=== PATIENT | male | born 1985 | race Caucasian/White ===

== ENCOUNTER 2020-06-27 15:01 | Emergency (ER) | payer MEDICAID ==
[~2020-06-27] VITALS: Ht 172.7 cm; Wt 140.0 kg
--- NOTE | 2020-06-27 15:24 | NUR ---
MD at bedside for exam, present at bedside, and pt awake and alert, calm, cooperative, and stating SI with plan and multiple attempts in past with most recent one approximately 14 months ago. Pt in gown, provided a blanket, security doors closed by high pressure boiler operator and all belongings outside room, labeled in pt belongings bags. Sitter positioned outside room with direct line of sight on pt.
[2020-06-27 16:08] LABS: ALANINE AMINOTRANSFERASE 58 U/L (12-78); ALBUMIN 3.8 g/dL (3.4-5.0); ANION GAP 4 mmol/L (5-15); CALCIUM 9.4 mg/dL (8.5-10.1); CHLORIDE 107 mmol/L (98-107); CREATININE 1.18 mg/dL (0.7-1.3)
[2020-06-27 16:10] LABS: ALKALINE PHOSPHATASE 79 U/L (45-117); BASOPHILS % (AUTO) 1 % (0-1); BILIRUBIN,TOTAL 0.5 mg/dL (0.2-1.0); EOSINOPHILS % (AUTO) 2 % (1-7); LYMPHOCYTES % (AUTO) 36 % (22-44); MEAN CORPUSCULAR HEMOGLOBIN 30.8 pg (27.5-34.5); MEAN CORPUSCULAR HGB CONC 34.5 g/dL (33.2-36.2); MEAN PLATELET VOLUME 6.7 fL (7.4-10.4); MONOCYTES % (AUTO) 12 % (2-9); NEUTROPHILS % (AUTO) 49 % (42-75); PLATELET COUNT 314 x10^3/uL (130-400); RED CELL DISTRIBUTION WIDTH 12.6 % (9.4-14.8); SALICYLATE LEVEL < 1.7 mg/dL (2.8-20.0); TOTAL PROTEIN 8.3 g/dL (6.4-8.2)
[2020-06-27 16:11] LABS: MD NO
[2020-06-27 16:51] LABS: AMPHETAMINE SCREEN, URINE Negative (Negative); BARBITURATE SCREEN, URINE Negative (Negative); BENZODIAZEPINE SCREEN, URINE Negative (Negative); CANNABINOID SCREEN, URINE Negative (Negative); COCAINE SCREEN, URINE Negative (Negative); METHADONE SCREEN, URINE Negative (Negative); OPIATE SCREEN, URINE Negative (Negative)
--- NOTE | 2020-06-27 17:54 | NUR ---
guest services officer states pt is being placed on a legal hold. Hospital bed ordered for pt at this time. Pt ate 100% of dinner tray with all items returned and disposed of.
--- NOTE | 2020-06-27 18:41 | NUR ---
TP TN: PACKET FAXED TO [facility].
--- NOTE | 2020-06-27 18:57 | NUR ---
Report given to GOMEZ, RN and care transferred.
--- NOTE | 2020-06-27 19:20 | NUR ---
Report received from CHARLEE Hidalgo. This RN to assume care. Patient lying in hospital bed with no complaints/needs. Room secured, belongings locked in cabinet. Sitter outside. at bedside. Patient has no meds ordered at this time but takes psych meds regularly. Will discuss home meds with patient and consult ERP.
--- NOTE | 2020-06-27 20:10 | NUR ---
Provided drinks to patient. No other complaints/needs at this time. Room secured, belongings locked in cabinet. Sitter outside.
[2020-06-27] MEDS ORDERED: LISI-170 PO (20:32)
[2020-06-27] MEDS ORDERED: LEVE10007 PO (20:32)
[2020-06-27] MEDS ORDERED: SERT100T32 PO (20:32)
[2020-06-27] MEDS ORDERED: MIRT-34 PO (20:32)
--- NOTE | 2020-06-27 20:32 | NUR ---
Patient states he takes home meds and has the bottles with him. Completed med rec.
[2020-06-27] MEDS ORDERED: MIRTAZAPINE 15 MG TABLET PO SCH (21:00)
--- NOTE | 2020-06-27 21:19 | NUR ---
TP RN: FOLLOW UP CALL TO [facility] FOR UPDATE, PER STAFF THEY WILL REVIEW PACKET AND RETURN CALL.
--- NOTE | 2020-06-27 21:22 | NUR ---
TP RN: FOLLOW UP CALL TO [facility], PER STAFF THEY CAN'T BILL INSURANCE, OFFERED ACCEPTANCE SELF PAY ONLY.
--- NOTE | 2020-06-27 21:29 | NUR ---
TP RN: FOLLOW UP CALL TO [facility], PER [facility] DIAMOND SAW OPERATOR CALL TOMORROW TO SPEAK TO DAY DIAMOND SAW OPERATOR.
[2020-06-27] MEDS: LEVETIRACETAM 500 MG TABLET PO SCH (21:30)
--- NOTE | 2020-06-27 21:34 | NUR ---
TP RN: JIE BARRIENTOS AT [facility] THEY DO NOT ACCEPT PT'S INSURANCE FFS MEDICAID.
--- NOTE | 2020-06-27 21:40 | NUR ---
Patient resting in hospital bed with no complaints. Respirations even and unlabored. Room secured, belongings locked in cabinet. Sitter outside.
[2020-06-27] MEDS ORDERED: MIRTAZAPINE 15 MG TABLET ONE (21:42)
[2020-06-27] MEDS ORDERED: LEVETIRACETAM 500 MG TABLET ONE (21:43)
--- NOTE | 2020-06-27 22:20 | NUR ---
Patient resting in hospital bed with no complaints. Respirations even and unlabored. Room secured, belongings locked in cabinet. Sitter outside.
--- NOTE | 2020-06-27 23:40 | NUR ---
Patient resting in hospital bed with no complaints. Respirations even and unlabored. Room secured, belongings locked in cabinet. Sitter outside. brought additional patient belongings. Locked in cabinet.
--- NOTE | 2020-06-28 00:29 | NUR ---
Patient resting in hospital bed with no complaints. Respirations even and unlabored. Room secured, belongings locked in cabinet. Sitter outside.
--- NOTE | 2020-06-28 01:31 | NUR ---
Report to CHARLEE Whitmore. Patient care transferred.
--- NOTE | 2020-06-28 02:25 | NUR ---
PT RESTING IN BED WITH SITTER AT DOOR. PT IN SI SERCURED ROOM. PT HAS EQUAL AND UNLABORED BREATHING.
--- NOTE | 2020-06-28 03:26 | NUR ---
Break RN: Patient resting in hospital bed with no complaints. Respirations even and unlabored. Room secured, belongings locked in cabinet. Sitter outside.
--- NOTE | 2020-06-28 05:22 | NUR ---
PT RESTING IN BED WITH SITTER AT DOOR. PT IN SI SERCURED ROOM. PT HAS EQUAL AND UNLABORED BREATHING.
--- NOTE | 2020-06-28 07:11 | NUR ---
pt resting in bed with eyes closed. no stated needs at this time. sitter at door.
--- NOTE | 2020-06-28 08:20 | NUR ---
pt up to the bathroom steadily. no stated needs currently. sitter remains at door for frequnt obs.
[2020-06-28] MEDS ORDERED: SERTRALINE 100MG TABLET PO SCH (09:00)
[2020-06-28] MEDS ORDERED: LISINOPRIL 10 MG TABLET PO SCH (09:00)
[2020-06-28] MEDS ORDERED: SERTRALINE 50MG TABLET ONE (09:07)
[2020-06-28] MEDS ORDERED: LISINOPRIL 10 MG TABLET ONE (09:07)
[2020-06-28] MEDS ORDERED: LEVETIRACETAM 500 MG TABLET ONE (09:07)
[2020-06-28 09:50] VITALS: BP 118/77
--- NOTE | 2020-06-28 09:50 | NUR ---
pt sitting up eating meal tray. pt took meds willingly. pt had cell phone in bd with him. pt okay with placing phone with other belongings. pt cell phon placed in belongings bag in clothing closet. sitter at door.
[2020-06-28] MEDS: LEVETIRACETAM 500 MG TABLET PO SCH (09:58)
--- NOTE | 2020-06-28 10:11 | NUR ---
PT RESTING CALMLY IN BED. NO STATED NEEDS AT THIS TIME. SITTER AT DOOR.
--- NOTE | 2020-06-28 11:45 | NUR ---
PT SWABBED FOR RAPID COVID PER [facility] PROTOCOL. SWAB WALKED TO LAB. PT RESTING CALMLY IN BED. NO STATED NEEDS AT THIS TIME. SITTER AT DOOR. FOR OBS.
--- NOTE | 2020-06-28 13:44 | NUR ---
REPORT TO ENRIKE DESHPANDE
[2020-06-29] MEDS ORDERED: SERT100T PO (17:22)
== END 2020-06-28 14:13 ==
LOC: ED 17:02
DX: R45.851 Suicidal ideations (principal); Z72.9 Problem related to lifestyle, unspecified; R44.1 Visual hallucinations; R44.0 Auditory hallucinations
CPT/HCPCS: 36415; 80053; 80299; 80307; 80320; 80329; 85025; 99285; G0480

== ENCOUNTER 2020-06-28 12:16 | Inpatient (IN) | payer MEDICAID ==
[~2020-06-28] VITALS: Ht 172.7 cm; Wt 135.3 kg
[~2020-06-28 12:16] MED LIST: LEVE10007 PO; LISI-170 PO; MIRT-34 PO; SERT100T32 PO
[2020-06-28] MEDS ORDERED: BISACODYL 10 MG SUPP PR PRN (13:30)
[2020-06-28] MEDS ORDERED: DOCUSATE 100 MG CAPSULE PO PRN (13:30)
[2020-06-28] MEDS ORDERED: ACETAMINOPHEN 325 MG TABLET PO PRN (13:30)
[2020-06-28] MEDS ORDERED: POLYETHYLENE GLYCOL 17 GM PACKET PO PRN (13:30)
[2020-06-28] MEDS ORDERED: ONDANSETRON ODT 4 MG PO PRN (13:30)
[2020-06-28 14:31] VITALS: BP 125/84
[2020-06-28] MEDS ORDERED: LEVETIRACETAM 1000 MG PO SCH (16:00)
[2020-06-28] MEDS: LEVETIRACETAM 500 MG TABLET PO SCH ×2 (16:35→20:48)
[2020-06-28 19:40] VITALS: BP 99/69
[2020-06-28] MEDS: MIRTAZAPINE 15 MG TABLET PO SCH (20:48)
[2020-06-29 07:36] VITALS: BP 111/77
[2020-06-29 07:53] LABS: FREE T4 (FREE THYROXINE) 0.95 ng/dL (0.76-1.46); LDL/HDL RATIO 4.5 (0.5-3.0)
[2020-06-29] MEDS: LISINOPRIL 10 MG TABLET PO SCH (08:43)
[2020-06-29] MEDS: LEVETIRACETAM 500 MG TABLET PO SCH ×3 (08:43→21:01)
[2020-06-29] MEDS ORDERED: SERTRALINE 100MG TABLET PO SCH (09:00)
[2020-06-29 13:46] LABS: MICROSCOPIC NOT IND
[2020-06-29] MEDS ORDERED: SERT100T PO (17:22)
[2020-06-29] MEDS ORDERED: ORAJEL 7GM TUBE MM PRN (18:00)
[2020-06-29 19:40] VITALS: BP 112/74
[2020-06-29] MEDS: MIRTAZAPINE 15 MG TABLET PO SCH (21:01)
[2020-06-30 07:48] VITALS: BP 124/82
[2020-06-30] MEDS: LEVETIRACETAM 500 MG TABLET PO SCH ×3 (09:09→21:08)
[2020-06-30] MEDS: SERTRALINE 100MG TABLET PO SCH (09:09)
[2020-06-30] MEDS: LISINOPRIL 10 MG TABLET PO SCH (09:09)
[2020-06-30] MEDS ORDERED: SERT100T32 PO (13:44)
[2020-06-30] MEDS ORDERED: MIRT-34 PO (13:44)
[2020-06-30 19:45] VITALS: BP 129/84
[2020-06-30] MEDS: MIRTAZAPINE 15 MG TABLET PO SCH (20:22)
[2020-07-01 07:45] VITALS: BP 111/76
[2020-07-01] MEDS: LISINOPRIL 10 MG TABLET PO SCH (08:35)
[2020-07-01] MEDS: LEVETIRACETAM 500 MG TABLET PO SCH ×2 (08:35→16:14)
[2020-07-01] MEDS: SERTRALINE 100MG TABLET PO SCH (08:36)
== END 2020-07-01 19:05 | disposition home or self-care (01) | DRG 751 ==
LOC: 3E 13:54
PROVIDERS: ADMIT Psychiatry & Neurology Psychosomatic Medicine; ATTEND Psychiatry & Neurology Psychosomatic Medicine
DX: F33.2 Major depressive disorder, recurrent severe without psychotic features (principal); E66.9 Obesity, unspecified; F43.10 Post-traumatic stress disorder, unspecified; G40.909 Epilepsy, unspecified, not intractable, without status epilepticus; G47.00 Insomnia, unspecified; I10 Essential (primary) hypertension; Z79.899 Other long term (current) drug therapy; Z68.42 Body mass index [BMI] 45.0-49.9, adult; Z88.0 Allergy status to penicillin; Z20.828 Contact with and (suspected) exposure to other viral communicable diseases
CPT/HCPCS: 36415; 71045; 80053; 80061; 80299; 80307; 80320; 80329; 81003; 84439; 84443; 85025; 87426; 93005; 99285; G0480